=== PATIENT | female | born 1985 | race Caucasian/White ===

== ENCOUNTER 2018-03-19 14:03 | Outpatient (CLI) | payer OTHER ==
[~2018-03-19 14:03] MED LIST: Iopamidol 370 76% 100 ML VIAL ONE
--- NOTE | 2018-03-19 19:09 | CT ---
CT ABDOMEN AND PELVIS WITH IV CONTRAST: 03/19/2018 HISTORY: Sharp right lower quadrant pain, which started last night and is now constant. COMPARISON: None available. FINDINGS: The lung bases are clear. A 1.5 cm fat density lesion is seen in the left adrenal gland, likely related to a small myelolipoma. The liver, spleen, pancreas, right adrenal gland, bilateral kidneys, urinary bladder, and opacified b owel, as well as the abdominal aorta, demonstrate a normal CT appearance. The appendix is visualized and is normal in caliber. The uterus is mildly prominent, and there is fluid seen within the endometrial canal, which could be related to the stage of the patient's menstrual cycle, but this is more prominent than expected little es of the patient's menstrual cycle. There is slight heterogeneous involving a lower uterine segment , which is overall nonspecific. A discrete mass is unable to be delineated. There is a low density structure within the posterior aspect of the right ovary, measuring 2 cm, with a surrounding rim of enhancement, which may represent an involuting follicle or cyst. Left adnexal structures have a normal CT appearance. There is no free fluid, fluid collection, or lymphadenopathy seen in the abdomen or pelvis. IMPRESSION: 1. Nonspecific fluid within the endometrial canal. While this could be related to the stage of the patient's menstrual cycle, this is more prominent than typically expected for the amount of fluid wit hin the endometrial canal. Further evaluation with pelvic ultrasound is recommended. 2. Probable involuting cyst, right ovary. 3. No CT evidence of appendicitis. 4. Left adrenal myolipoma. POS: JIAN
== END 2018-03-19 14:04 | disposition home or self-care (01) ==
LOC: SCSCT 14:03
PROVIDERS: ATTEND Family Medicine
DX: R10.813 Right lower quadrant abdominal tenderness (principal); D17.79 Benign lipomatous neoplasm of other sites
CPT/HCPCS: 74177

== ENCOUNTER 2018-07-24 12:11 | Observation (INO) | payer BC ==
[2018-07-24] MEDS ORDERED: Acetaminophen 500 MG TAB PO PRN (13:00)
[2018-07-24] MEDS ORDERED: Lidocaine 1% (PF) 30 ML VIAL SC PRN (13:00)
[2018-07-24] MEDS ORDERED: Zolpidem Tartrate 5 MG TAB PO PRN (13:00)
[2018-07-24] MEDS ORDERED: Butorphanol Tartrate 1 MG/ML VIAL SLOW IVP PRN (13:00)
[2018-07-24] MEDS ORDERED: Promethazine HCl 25 MG/ML VIAL IM PRN (13:00)
[2018-07-24] MEDS ORDERED: Ondansetron PF 4 MG/2 ML Vial IVP PRN (13:00)
[2018-07-24] MEDS ORDERED: Betamet Acet/Betamet Na Ph 30 MG/5 ML VIAL ONE (13:04)
--- NOTE | 2018-07-24 13:11 | PDOC.LDHP ---
Labor and Delivery H&P Chief complaint: other (cervical funneling) HPI: 32 yo WF at 27 weeks seen at [facility] today by Dr. Hernandes. On USG, cervical funneling was seen, vtx. On her exam the cevix is closed but flush with vault. Pt. denies UCs, bleeding or SROM. Current gestational age (weeks): 27 Due date: 10/22/18 Dating criteria: first trimester ultrasound Grav: 2 Para: 0 OB History Details: Demise at 18 weeks 2* to cord accident, followed by IOL. Current complications: other (PNC with Dr. Patel. Followed at [facility]. On Lovenox 40 QD for suspected Lupus Anticoagulant.) Abnormal US findings: No Past Medical History: As above Current medications: pre-robert vitamins, other (Lovenox 40 QD, [place] q week.) Previous surgical history: none Allergies/Adverse Reactions: Allergies Allergy/AdvReac Type Severity Reaction Status Date / Time latex Allergy Mild Rash Verified 05/21/13 11:31 cucumber Allergy Swollen Uncoded 05/22/13 14:08 Lips Social history: none - Physical Exam Vital signs reviewed and normal: yes General: NAD, resting Lungs: nonlabored breathing Abdomen: NTTP Extremeties: trace edema FHT: category 1 [place] contractions every: no UCs seen - OB Labs Blood type: B RH: positive Antibody Screen: negative HIV: negative RPR: negative HEPSAg: negative 1 hour GCT: negative GBS: unknown Rubella: immune - Assessment L&D Assessment: labor (27 week IUP with cervical funneling r/o PTL, h/o demise, lupus anticoagulant on Lovenox) - Plan Plan: admit to L&D, observation in L&D, other (Steroids for FLM, watch for cervical change. D/w Dr. Hernandes. NICU notified.)
[2018-07-24] MEDS ORDERED: Betamet Acet/Betamet Na Ph 30 MG/5 ML VIAL IM SCH (13:15)
[2018-07-24 13:26] LABS: Hemoglobin 11.4 g/dL (12.0-16.0); Mean Corpuscular HGB CONC 33.5 g/dL (32.0-36.0); Mean Corpuscular Hemoglobin 29.2 pg (27.0-31.0); Mean Platelet Volume 7.2 fL (7.4-10.4); Platelet Count 283 thou/uL (130-400); RBC Distribution Width 11.6 % (11.5-14.5); Red Blood Cell (RBC) Count 3.91 mill/uL (4.20-5.40); White Blood Cell (WBC) Count 10.6 thou/uL (4.8-10.8)
[2018-07-24 13:56] VITALS: BMI 33.7
[2018-07-25 09:48] VITALS: BP 117/82; TEMP 98.2
--- NOTE | 2018-07-25 14:02 | PDOC.LDPN ---
Labor & Delivery Progress Note - Subjective Subjective: comfortable, other (occ burning sensation in lower abdomen (2times today)) - Objective Vital signs reviewed and normal: yes General: NAD Uterine fundus: non tender Dilation: 2 Effacement: 75% Station: -3 FHT: category 1 [place] contractions every: none -: 32yo at 27w2d by 8w sono admitted with cervical funneling 1. VSSAF 2. Short cervix since 20w- has been on vaginal progesterone, No sx of PTL. Now dilated on SVE. Will need continue inpatient monitoring for advanced cervical dilation. No tocolysis as pt is not in PTL. 3. Lupus anticoagulant positive- on ppx lovenox, last dose 2d ago. SCDs. 4. FHT Cat 1 for GA. 5. Transfer center contacted for transport to [facility] for NICU.
[2018-07-25] MEDS ORDERED: Magnesium Sulfate 20 gm/500 ml 20 GM/500 ML BAG ONE (15:08)
[2018-07-25] MEDS ORDERED: Calcium Gluc 4.6 MEQ/10 ML (100 MG/ML) IV PRN (15:29)
[2018-07-25] MEDS ORDERED: Magnesium Sulfate 20 gm/500 ml 4 GM/100 ML BAG IVPB ONE (15:45)
[2018-07-25] MEDS ORDERED: Magnesium Sulfate 20 gm/500 ml 20 GM/500 ML BAG IVPB PRN (16:00)
--- NOTE | 2018-07-26 10:01 | DIS ---
DATE OF ADMISSION: 07/24/2018 DATE OF DISCHARGE: 07/25/2018 ADMISSION DIAGNOSES: 1. Intrauterine at 27 weeks and 1 day. 2. Short cervix with cervical funneling. 3. Positive lupus anticoagulant. DISCHARGE DIAGNOSES: 1. Intrauterine at 27 weeks and 2 days. 2. Advanced cervical dilation at 2 cm. 3. Positive lupus anticoagulant. DISCHARGE CONDITION: Guarded. CONSULTATIONS: None. PROCEDURES: None. HISTORY AND PHYSICAL: Please see previously dictated H and P. HOSPITAL COURSE: A 32-year-old, G2, P0, was sent over for direct admission secondary to intermittent lower abdominal pain and ultrasound finding of no measurable cervical length with a funnel. The patient had a vaginal exam and was noted to be closed in the office. She was monitored overnight and started on betamethasone x2 doses. She had no contractions on the tocometer and heart tones were category 1. The fetus is well grown at 1298 g and has normal fluid, was in cephalic presentation on ultrasound on admission date. After patient received her second dose of steroids, she was asymptomatic and the vaginal exam was performed to ensure the patient was stable for discharge. However, she was found to be 2 cm dilated and 80% effaced at that time. Presenting part was palpable, did not palpate like a vertex, and decision was made to proceed with transfer to higher level of care for NICU status. The patient was successfully transferred to [facility]. Dr. Casey was the accepting doctor and she was also bolused 4 g of magnesium and started on 2 g/hour of magnesium during transport and ordered for neuroprotection. No labs or studies are pending at the time of discharge. Job ID: [id number]
== END 2018-07-25 16:55 | disposition short-term general hospital (02) ==
LOC: L&D/OP 12:11 → L&D 15:43
PROVIDERS: ADMIT Obstetrics & Gynecology; ATTEND Obstetrics & Gynecology
DX: O26.872 Cervical shortening, second trimester (principal); Z3A.27 27 weeks gestation of pregnancy; Z91.040 Latex allergy status; Z91.018 Allergy to other foods; Z91.09 Other allergy status, other than to drugs and biological substances; Z79.82 Long term (current) use of aspirin; Z79.01 Long term (current) use of anticoagulants
CPT/HCPCS: 85027; 86850; 86900; 86901; 96365; 96372; G0378; J0702; J3475

== ENCOUNTER 2018-09-18 10:05 | Inpatient (IN) | payer BC, OTHER ==
[2018-09-18 10:47] VITALS: BMI 34.8
[2018-09-18 12:05] LABS: Bilirubin Negative (Negative); Blood, Urine Negative (Negative); Clarity CLOUDY (Clear); Glucose, Urine (Dipstick) Negative (Negative); Leukocyte Trace (Negative); Nitrite Negative (Negative); Protein, Urine (Dipstick) 100 mg/dL (Neg-Trace); Specific Gravity, Urine 1.026 (1.002-1.036); Urobilinogen 0.2 mg/dL (0.2-1.0); pH, Urine 6.5 (5.0-9.0)
[2018-09-18 12:07] LABS: Bacteria/HPF Rare-Few HPF (None Seen); Hyaline Casts/LPF 4-6 HYALINE CAST LPF (0-3 Hyaline); Pathc Cast-AUWi Flag 0.81 (0-2.49); Squamous Epithelial 0-3 HPF (0-3); WBC/HPF 21-50 HPF (0-3)
[2018-09-18 12:30] LABS: Hemoglobin 11.9 g/dL (12.0-16.0); Mean Corpuscular HGB CONC 35.2 g/dL (32.0-36.0); Mean Corpuscular Hemoglobin 30.4 pg (27.0-31.0); Mean Corpuscular Volume 86.3 fL (78.0-98.0); Mean Platelet Volume 8.7 fL (7.4-10.4); Platelet Count 157 thou/uL (130-400); RBC Distribution Width 13.4 % (11.5-14.5); Red Blood Cell (RBC) Count 3.93 mill/uL (4.20-5.40); White Blood Cell (WBC) Count 8.6 thou/uL (4.8-10.8)
[2018-09-18 12:53] LABS: ALT (SGPT) 10 U/L (8-55); AST (SGOT) 15 U/L (5-34); Albumin 3.4 g/dL (3.5-5.0); Alkaline Phosphatase 132 U/L (40-150); Anion Gap 13 mmol/L (10-20); BUN (Urea Nitrogen) 13 mg/dL (7.0-18.7); Bilirubin, Total Less than 0.2 mg/dL (0.2-1.2); Calc. Creatinine Clearance 184 mL/min (70-130); Calcium 9.5 mg/dL (7.8-10.44); Carbon Dioxide 20 mmol/L (22-29); Chloride 107 mmol/L (98-107); Estimated GFR-MDRD 85; Globulin 3.4 g/dL (2.4-3.5); Glucose 83 mg/dL (70-105); Potassium 4.2 mmol/L (3.5-5.1); Protein, Total 6.8 g/dL (6.0-8.3); Sodium 136 mmol/L (136-145)
[2018-09-18] MEDS ORDERED: Ondansetron PF 4 MG/2 ML Vial IVP PRN (13:21)
[2018-09-18] MEDS ORDERED: Betamet Acet/Betamet Na Ph 30 MG/5 ML VIAL IM SCH (13:45)
[2018-09-18 14:47] LABS: HBSAg Index 0.26 S/CO (0-0.99); Hep B Surf Ag Non-Reactive S/CO (NonReactive)
[2018-09-18 14:50] LABS: Syphilis Antibody Nonreactive (Nonreactive); Syphilis Antibody Index 0.05 S/CO (<1.00 Non-Reactive)
--- NOTE | 2018-09-18 18:15 | HP ---
PRIMARY GASTROENTEROLOGIST: Carol Patel MD CHIEF COMPLAINT: Elevated blood pressure. HISTORY OF PRESENT ILLNESS: The patient is a 32-year-old, G2, P0, female with an intrauterine at 35 weeks and a day, who is presenting to Labor and Delivery after having elevated blood pressures and pelvic pain in the clinic. The patient denies contraction pain. She reports pelvic pain that seems to be more present with activity and movement such as getting out of bed or out of the car. She denies headache, chest pain, or shortness of breath. She did vomit earlier or last night, but denies any nausea currently. Denies any diarrhea or constipation. The patient does report sore hips. Denies any knee problems or muscle weakness. Denies any new rashes, vaginal bleeding, leakage of fluid, urinary urgency or frequency. The patient also denies any significant weight increases in the recent days to week. The patient reports she has been monitoring her blood pressures at home for several weeks since being discharged from the hospital after being arrested labor, but reports her blood pressure has primarily been in the 130s and 80s, sometimes in the 90s diastolic. PAST MEDICAL HISTORY: Suspected lupus anticoagulant, on Lovenox. PAST SURGICAL HISTORY: Negative. ALLERGIES: LATEX AND CUCUMBERS. SOCIAL HISTORY: Denies drug, alcohol, or tobacco use. MEDICATIONS: 1. Lovenox 40 mg subcutaneously daily. 2. vitamins. 3. Micronized progesterone. 4. Tylenol p.r.n. OB LABS: Blood type is B negative. Antibody screen is negative. VDRL initial is nonreactive. Hepatitis B surface antigen first trimester is nonreactive. HIV first trimester is nonreactive. She is rubella immune. Drug screen is negative. Third trimester antibody screen is negative. One-hour Glucola is 129. REVIEW OF SYSTEMS: Per HPI. PHYSICAL EXAMINATION: VITAL SIGNS: Blood pressure on arrival was 137/91, heart rate of 75, respiratory rate of 18, saturating 96% on room air, and temperature 98.8. Her blood pressures during her stay so far have been in the 130s to 150s over 80s to 90s primarily. She has had 161 systolic pressure and 103 diastolic pressure. GENERAL: She appears to be in no acute distress. She is alert and oriented, cooperative and pleasant to interact with. HEENT: Head is normocephalic and atraumatic. LUNGS: Clear to auscultation bilaterally. HEART: Has regular rate and rhythm. ABDOMEN: Gravid, soft, and nontender to palpation. EXTREMITIES: Nontender, nonedematous. DTRs are non-existent. GENITOURINARY: Has been deferred. heart tracing and NST for elevated blood pressures and pelvic pains. Blood pressure baseline in the 120s with moderate long-term variability, positive 15 x 15 accelerations, no decelerations. There is some isolated contraction on the tocometer. LABORATORY DATA: White count 8.6, hemoglobin 11.9, hematocrit 33.9, platelets 157,000, down from 283,000 a couple of months ago. Urine shows 100 mg/dL of protein, pH of 6.5, ketones are negative, leukocyte esterase trace, white blood cells 21 to 50, no squamous cells, and no bacteria. AST of 15, ALT of 10, alkaline phosphatase 132, glucose 83, sodium 136, and potassium 4.2. IMAGING DATA: Ultrasound, the patient had a BPP in the office today at 11/22. Also of note, the patient reports that she had RhoGAM given to her on 07/30/2018 and has her documentation card. ASSESSMENT AND PLAN: The patient is a 32-year-old, G2, P0, female with an intrauterine at 35 weeks and a day, who has evidence of preeclampsia by blood pressure and proteinuria. She has had one severe range pressure and has what appeared to be lowering platelets, but nothing to rule in for severe at this time given her elevated risk for this in early delivery. The patient will be admitted for blood pressure monitoring and steroid administration. The patient is admitted to Dr. Patel, who will be managing care at this point. Fetus is reactive NST and category I tracing. Job ID: [id number]
--- NOTE | 2018-09-19 08:43 | PDOC.EVN ---
Event Note - Event Note Event Note: S: No complaints, no RIVERA vision change RUQ pain. Good FM. No ctx VB LOF O: BP normal -mild, severe range x 1 yesterday at 1245 NAD RRR CTAB S/nt/gravid NST: baseline 110/modbtbv/+accel/no decel [place] rare contraction No e/c/c A: IUP at 35w2d by LMP with preeclampsia, for rule out severe features P: Repeat labs today, cont serial BP, if additional severe range BP will be severe and need IOL. BMZ x 2, up at 1300 Cont monitoring while in house. Poss home after steroids if BP and labs ok.
[2018-09-19] MEDS ORDERED: Prenatal Vitamin 1 TAB PO SCH (09:00)
[2018-09-19 09:30] LABS: #Lymphocytes 1.8 thou/uL (1.20-3.40); #Monocytes 0.6 thou/uL (0.11-0.59); #Neutrophils 8.8 thou/uL (1.40-6.50); %Basophils 0.1 % (0.0-1.0); %Eosinophils 0.3 % (0.0-10.0); %Lymphocytes 15.6 % (21.0-51.0); %Monocytes 5.6 % (0.0-10.0); %Neutrophils 78.5 % (42.0-75.0); Hemoglobin 12.1 g/dL (12.0-16.0); Mean Corpuscular HGB CONC 35.3 g/dL (32.0-36.0); Mean Corpuscular Hemoglobin 30.6 pg (27.0-31.0); Mean Corpuscular Volume 86.6 fL (78.0-98.0); Mean Platelet Volume 8.6 fL (7.4-10.4); Platelet Count 169 thou/uL (130-400); RBC Distribution Width 13.4 % (11.5-14.5); Red Blood Cell (RBC) Count 3.97 mill/uL (4.20-5.40); White Blood Cell (WBC) Count 11.3 thou/uL (4.8-10.8)
[2018-09-19 09:57] LABS: ALT (SGPT) 11 U/L (8-55); AST (SGOT) 14 U/L (5-34); Albumin 3.4 g/dL (3.5-5.0); Alkaline Phosphatase 133 U/L (40-150); Anion Gap 15 mmol/L (10-20); BUN (Urea Nitrogen) 11 mg/dL (7.0-18.7); Bilirubin, Total 0.2 mg/dL (0.2-1.2); Calc. Creatinine Clearance 194 mL/min (70-130); Calcium 9.6 mg/dL (7.8-10.44); Carbon Dioxide 19 mmol/L (22-29); Chloride 105 mmol/L (98-107); Estimated GFR-MDRD 90; Globulin 3.5 g/dL (2.4-3.5); Glucose 105 mg/dL (70-105); Protein, Total 6.9 g/dL (6.0-8.3); Sodium 135 mmol/L (136-145)
[2018-09-19 14:45] LABS: Creatinine, Urine 74.21 mg/dL (47-110)
== END 2018-09-19 16:05 | disposition home or self-care (01) | DRG 998 ==
LOC: L&D/OP 10:05 → L&D 14:01
PROVIDERS: ADMIT Student in an Organized Health Care Education/Training Program; ATTEND Student in an Organized Health Care Education/Training Program
DX: O14.94 Unspecified pre-eclampsia, complicating childbirth (principal); Z3A.35 35 weeks gestation of pregnancy; Z91.040 Latex allergy status
CPT/HCPCS: 36415; 80053; 81001; 82570; 84156; 85025; 85027; 86780; 86850; 86900; 86901; 87340; 99285; J0702

== ENCOUNTER 2018-09-23 19:27 | Inpatient (IN) | payer BC, OTHER ==
[2018-09-23 20:07] VITALS: BMI 34.9
[2018-09-23 20:36] LABS: #Eosinphils 0.1 thou/uL (0.0-0.7); #Lymphocytes 2.4 thou/uL (1.20-3.40); #Monocytes 1.3 thou/uL (0.11-0.59); #Neutrophils 8.8 thou/uL (1.40-6.50); %Basophils 0.1 % (0.0-1.0); %Eosinophils 0.6 % (0.0-10.0); %Monocytes 10.2 % (0.0-10.0); %Neutrophils 70.1 % (42.0-75.0); Hemoglobin 12.6 g/dL (12.0-16.0); Mean Corpuscular HGB CONC 33.2 g/dL (32.0-36.0); Mean Corpuscular Hemoglobin 29.2 pg (27.0-31.0); Mean Corpuscular Volume 87.9 fL (78.0-98.0); Mean Platelet Volume 8.4 fL (7.4-10.4); Platelet Count 199 thou/uL (130-400); RBC Distribution Width 13.7 % (11.5-14.5); White Blood Cell (WBC) Count 12.5 thou/uL (4.8-10.8)
--- NOTE | 2018-09-23 20:43 | PDOC.EVN ---
Event Note - Event Note Event Note: History And Physical Interim note Full H&P DICTATED Location: L&D Time: 2029 CC: RIVERA at home and some "blurry vision", mild nausea; HX BP elevation this ; (HX SAB at 18 weeks previously). EGA: 35 weeks [address] Jorge Hawkins have seen and evaluated the patient. BPs 150s/90s We will keep overnight for BP observation. labs ordered. Celestone given previously.
[2018-09-23 20:56] LABS: ALT (SGPT) 62 U/L (8-55); AST (SGOT) 41 U/L (5-34); Albumin 3.3 g/dL (3.5-5.0); Alkaline Phosphatase 130 U/L (40-150); Anion Gap 14 mmol/L (10-20); BUN (Urea Nitrogen) 13 mg/dL (7.0-18.7); Bilirubin, Total 0.2 mg/dL (0.2-1.2); Calc. Creatinine Clearance 201 mL/min (70-130); Calcium 9.4 mg/dL (7.8-10.44); Carbon Dioxide 19 mmol/L (22-29); Chloride 107 mmol/L (98-107); Estimated GFR-MDRD Greater than 90; Globulin 3.5 g/dL (2.4-3.5); Glucose 101 mg/dL (70-105); Protein, Total 6.8 g/dL (6.0-8.3); Sodium 136 mmol/L (136-145)
[2018-09-23] MEDS ORDERED: Betamet Acet/Betamet Na Ph 30 MG/5 ML VIAL IM SCH (21:00)
[2018-09-23 21:02] LABS: Creatinine, Urine 34.59 mg/dL (47-110)
--- NOTE | 2018-09-23 21:07 | HP ---
TIME: 2034. LOCATION: Labor and Delivery triage room B. This is a patient of Dr. Patel. CHIEF COMPLAINT: The patient is here with a chief complaint of headaches at home and recent blood pressure evaluation during this . HISTORY OF PRESENT ILLNESS: This is a 33-year-old , 2, para 0, at 35 weeks and 6 days, who presents with a complaint of headache earlier today and some mild nausea. She states that she had some on and off blurry vision, but no little lights in her vision. She was recently given steroids for some elevated blood pressures, but was sent home after that evaluation. She has good movement, no right upper quadrant pain, no vaginal bleeding, no leakage of fluid. REVIEW OF SYSTEMS: Complete review of systems was checked and is otherwise negative unless specified in the HPI. PAST MEDICAL HISTORY: Otherwise unremarkable. OB HISTORY: She had an 18-week previous demise that was a vaginal . PAST SURGICAL HISTORY: Includes laparoscopy as well as a prior LEEP. ALLERGIES: THE PATIENT HAS ALLERGIES TO LATEX, AMMONIA, BLEACH, MELON, AND SEVERAL OTHERS LISTED, WHICH WERE FOUND IN THE EMR AND HAVE BEEN REVIEWED. SOCIAL HISTORY: Noncontributory. PHYSICAL EXAMINATION: VITAL SIGNS: Blood pressure is 155/96 and 156/94. Pulse is normal in the 70s to 80s, and she is afebrile. Respirations are unlabored at about 18 to 20. GENERAL: Clinically, she is in no acute distress. ABDOMEN: Soft and nontender. PELVIC: Exam was deferred. Perineal inspection shows no vaginal bleeding or rupture of membranes. On monitoring, heart tones are in the 130s to 140s and category I. There is some uterine irritability, but no overt contractions. ASSESSMENT: This is a G2, P0, at 35 weeks and 6 days, here for blood pressure evaluation with a small headache at home, but that has now resolved. Her blood pressures are in the [id number] range, but are not in the severe criteria. PLAN: 1. I will order a CMP, CBC, and check urine protein and creatinine. 2. She has already received steroids, so we will not administer Celestone at this time. 3. We will do serial blood pressures every 30 minutes overnight and just keep her for overnight observation to be conservative. 4. If she has persistent objective evidence of severe disease, she may require induction of labor. 5. No evidence of severe disease at this time as headache has resolved and "blurry vision" is nonspecific. 6. I have notified by Dr. Patel by [employer] and she is aware. She will follow up with the patient tomorrow for final disposition. Job ID: [id number]
[2018-09-23] MEDS: Acetaminophen 500 MG TAB PO PRN (21:11)
--- NOTE | 2018-09-23 21:22 | PDOC.EVN ---
Event Note - Event Note Event Note: Lab check: AST 41; ALT 62...UP/Cr ratio is 2 I will relay to Dr babcock. Check CX
[2018-09-23] MEDS ORDERED: Calcium Gluc 4.6 MEQ/10 ML (100 MG/ML) SLOW IVP PRN (21:31)
--- NOTE | 2018-09-23 21:31 | PDOC.EVN ---
Event Note - Event Note Event Note: Time: 2129 INDUCTION NOTE I have updated the patient on her labs at bedside with Bhavna present. Jose communicated with Dr babcock.. We will start Mag Sulfate after her dinner tonight (to prevent mag nausea with meal) and start pitocin at 0400 for preeclampsia with lab abnormalities (severe criteria). Q&A done at bedside.
[2018-09-23] MEDS ORDERED: Lidocaine 1% (PF) 30 ML VIAL SC PRN (21:32)
[2018-09-23] MEDS ORDERED: Promethazine HCl 25 MG/ML VIAL IM PRN (21:32)
[2018-09-23] MEDS ORDERED: Butorphanol Tartrate 1 MG/ML VIAL SLOW IVP PRN (21:32)
[2018-09-23] MEDS ORDERED: Ondansetron PF 4 MG/2 ML Vial IVP PRN (21:32)
[2018-09-23] MEDS ORDERED: HYDROcodone/Acetaminophen 5/325 mg Tablet PO PRN ×2 (21:32)
[2018-09-23] MEDS ORDERED: Ibuprofen 800 MG TAB PO PRN (21:32)
[2018-09-23] MEDS ORDERED: Magnesium Sulfate 20 GM/WATER 500 ML BAG IVPB SCH (21:45)
[2018-09-23] MEDS ORDERED: Lactated Ringer's 1,000 ML IV SCH (22:00)
[2018-09-23] MEDS: Magnesium Sulfate 20 gm/500 ml 20 GM/500 ML BAG IVPB SCH (23:30)
[2018-09-24 00:24] LABS: Syphilis Antibody Nonreactive (Nonreactive); Syphilis Antibody Index 0.05 S/CO (<1.00 Non-Reactive)
[2018-09-24 01:00] LABS: HBSAg Index 0.24 S/CO (0-0.99); HIV (1/2) Antibody/Antigen Non-Reactive (NonReactive); HIV 1/2 INDEX 0.25 S/CO (<1.00); Hep B Surf Ag Non-Reactive S/CO (NonReactive)
[2018-09-24] MEDS: NS w/ Oxytocin 10 units 500 ML IV SCH ×2 (03:56→15:31)
[2018-09-24] MEDS: Acetaminophen 500 MG TAB PO PRN (04:09)
[2018-09-24] MEDS: Magnesium Sulfate 20 gm/500 ml 20 GM/500 ML BAG IVPB SCH ×2 (07:30→16:07)
[2018-09-24] MEDS ORDERED: hydrALAZINE 20 MG/ML VIAL ONE (07:59)
[2018-09-24] MEDS ORDERED: hydrALAZINE 20 MG/ML VIAL SLOW IVP SCH (08:15)
--- NOTE | 2018-09-24 08:29 | PDOC.LDPN ---
Labor & Delivery Progress Note - Subjective Subjective: painful contractions, other (headache) - Objective Abnormal vital signs: mild-severe range BPs General: NAD Uterine fundus: non tender Dilation: 5 Effacement: 100% Station: -2 (arom clear) FHT: category 1 [place] contractions every: 4min AROM: clear fluid Plan: labor augmentation, other (cont mag for Severe PEC, treat severe range BP with hydralazine prn, stadol for RIVERA, recheck labs and mag level this am. No sx mag toxicity, UOP 200cc/hr)
[2018-09-24 08:56] LABS: #Basophils 0.1 thou/uL (0.0-0.2); #Eosinphils 0.1 thou/uL (0.0-0.7); #Lymphocytes 2.8 thou/uL (1.20-3.40); #Monocytes 1.2 thou/uL (0.11-0.59); #Neutrophils 8.5 thou/uL (1.40-6.50); %Basophils 0.8 % (0.0-1.0); %Eosinophils 0.6 % (0.0-10.0); %Lymphocytes 21.9 % (21.0-51.0); %Monocytes 9.6 % (0.0-10.0); %Neutrophils 67.1 % (42.0-75.0); Hemoglobin 13.6 g/dL (12.0-16.0); Mean Corpuscular HGB CONC 33.7 g/dL (32.0-36.0); Mean Corpuscular Hemoglobin 29.1 pg (27.0-31.0); Mean Corpuscular Volume 86.5 fL (78.0-98.0); Mean Platelet Volume 8.3 fL (7.4-10.4); Platelet Count 217 thou/uL (130-400); RBC Distribution Width 13.7 % (11.5-14.5); Red Blood Cell (RBC) Count 4.66 mill/uL (4.20-5.40); White Blood Cell (WBC) Count 12.6 thou/uL (4.8-10.8)
[2018-09-24 09:14] LABS: ALT (SGPT) 57 U/L (8-55); AST (SGOT) 32 U/L (5-34); Albumin 3.4 g/dL (3.5-5.0); Alkaline Phosphatase 142 U/L (40-150); Anion Gap 14 mmol/L (10-20); BUN (Urea Nitrogen) 11 mg/dL (7.0-18.7); Bilirubin, Total 0.2 mg/dL (0.2-1.2); Calc. Creatinine Clearance 193 mL/min (70-130); Calcium 8.7 mg/dL (7.8-10.44); Carbon Dioxide 19 mmol/L (22-29); Chloride 105 mmol/L (98-107); Estimated GFR-MDRD 90; Globulin 3.7 g/dL (2.4-3.5); Glucose 91 mg/dL (70-105); Magnesium 5.4 mg/dL (1.6-2.6); Potassium 4.3 mmol/L (3.5-5.1); Protein, Total 7.1 g/dL (6.0-8.3); Sodium 134 mmol/L (136-145)
[2018-09-24] MEDS ORDERED: Fentanyl 4 mcg/Bup 0.1% Cadd 100 ML ONE (11:09)
--- NOTE | 2018-09-24 12:28 | PDOC.LDPN ---
Labor & Delivery Progress Note - Subjective Subjective: comfortable, other (headache) - Objective Vital signs reviewed and normal: yes Abnormal vital signs: bp have normalized since epidural General: NAD Uterine fundus: non tender Dilation: 8 Effacement: 100% Station: 0 FHT: category 2, absent or minimal variables [place] contractions every: 3min Plan: resuscitative measures (cont mag, tylenol prn RIVERA, LFTs trended down, nl Plt, creat. )
[2018-09-24] MEDS ORDERED: diphenhydrAMINE 50 MG/ML VIAL IVP PRN (15:36)
[2018-09-24] MEDS ORDERED: Ondansetron PF 4 MG/2 ML Vial IVP PRN (15:36)
[2018-09-24] MEDS ORDERED: Promethazine HCl 25 MG/ML VIAL IM PRN (15:36)
[2018-09-24] MEDS ORDERED: Lactated Ringer's 500 ML IV PRN (15:36)
[2018-09-24] MEDS ORDERED: ePHEDrine/0.9% NaCl/PF SYRINGE 50 mg/10 ml SLOW IVP PRN (15:36)
[2018-09-24] MEDS ORDERED: Naloxone HCl 0.4 mg/ml Vial IVP PRN ×2 (15:36)
[2018-09-24] MEDS ORDERED: Acetaminophen 325 MG TAB PO PRN (15:36)
[2018-09-24] MEDS ORDERED: Communication Order-Pharmacy FS SCH (15:45)
[2018-09-24] MEDS ORDERED: Fentanyl 4 mcg/Bupivacaine 0.1% Cassette 100 ML EPIDURAL SCH (15:45)
[2018-09-24] MEDS ORDERED: Carboprost 250 MCG/ML AMP ONE (18:38)
[2018-09-24] MEDS ORDERED: Misoprostol 200 MCG TAB ONE (18:38)
[2018-09-24] MEDS: NS / Oxytocin 40 units/1000ml 1,000 ML IV PRN ×2 (19:09→19:57)
[2018-09-24 19:14] LABS: Actual Bicarbonate (HCO3a) 20.3 mEq/L (22-28); Base Excess (BEa) -9.4 mEq/L (-2.0 to +3.0)
--- NOTE | 2018-09-24 19:21 | PDOC.OPDEL ---
OB Operative/Delivery Note Delivery Dr/Surgeon: Jorge Assist: n/a Pre-Delivery Diagnosis: medically indicated induction (Severe PEC) Procedure/Post Delivery Dx: operative vaginal delivery (VE) Weeks gestation: 36 Anesthesia: epidural - Findings A Sex: female Weight: 6 lb 10 oz - 1 min: 7 - 5 min: 8 - Additional Findings/Plan Placenta delivered: spontaneous Repaired Obstetrical Laceration: 1st degree (repaired with 2-0 vicryl) Estimated blood loss: 400 Compilations/Other Findings: NC x 1 delivered through, large cystic mass on anterior neck immediately cord clamped and handed to paco team in attendance due to VE for NRFHT with recurrent late decels during last stages of pushing with slow descent. Mom had been pushing x 2.5 hr, baby was ROP and would not rotate. Pt pushed to +3 station and decision was made for VE extraction for recurrent late decels. Successful extraction. See OVD note in chart. Post delivery plan: recovery in LICU
[2018-09-24] MEDS ORDERED: hydrALAZINE 20 MG/ML VIAL SLOW IVP PRN (21:46)
[2018-09-24] MEDS ORDERED: Bupivacaine/Epinephrine 0.25% 30 ML VIAL ONE (22:05)
[2018-09-24] MEDS ORDERED: Lidocaine 2% MPF 10 ML AMP (For Epidural Use) ONE (22:05)
[2018-09-24] MEDS: Morphine 4 MG/ML VIAL SLOW IVP PRN (23:07)
[2018-09-25] MEDS: Magnesium Sulfate 20 gm/500 ml 20 GM/500 ML BAG IVPB SCH ×2 (00:48→11:50)
[2018-09-25] MEDS: Morphine 4 MG/ML VIAL SLOW IVP PRN (04:23)
[2018-09-25] MEDS ORDERED: Benzocaine-Menthol 82.5 ML CAN TOP PRN (04:48)
[2018-09-25] MEDS ORDERED: diphenhydrAMINE 25 MG CAP PO PRN (04:48)
[2018-09-25] MEDS ORDERED: Zolpidem Tartrate 5 MG TAB PO PRN (04:48)
[2018-09-25] MEDS ORDERED: HYDROcodone/Acetaminophen 5/325 mg Tablet PO PRN ×2 (04:48)
[2018-09-25] MEDS ORDERED: Milk Of Magnesia 30 ML UDCUP PO PRN (04:48)
[2018-09-25] MEDS ORDERED: Preparation H Ointment 28 GM TUBE PR PRN (04:48)
[2018-09-25] MEDS ORDERED: Bisacodyl 10 MG SUPP PR PRN (04:48)
[2018-09-25] MEDS ORDERED: NS / Oxytocin 40 units/1000ml 1,000 ML IV SCH (04:48)
[2018-09-25] MEDS ORDERED: Ondansetron PF 4 MG/2 ML Vial IVP PRN (04:48)
[2018-09-25] MEDS ORDERED: Lanolin Ointment 7 GM TUBE TOP PRN (04:48)
[2018-09-25] MEDS: Ibuprofen 800 MG TAB PO SCH ×2 (06:37→21:48)
[2018-09-25 06:59] LABS: Hemoglobin 10.8 g/dL (12.0-16.0); Mean Corpuscular HGB CONC 34.6 g/dL (32.0-36.0); Mean Corpuscular Hemoglobin 30.1 pg (27.0-31.0); Mean Corpuscular Volume 87.1 fL (78.0-98.0); Platelet Count 199 thou/uL (130-400); RBC Distribution Width 13.4 % (11.5-14.5); Red Blood Cell (RBC) Count 3.57 mill/uL (4.20-5.40); White Blood Cell (WBC) Count 21.2 thou/uL (4.8-10.8)
[2018-09-25] MEDS ORDERED: Adacel (T-DAP) 0.5 ML SYRINGE IM ONE (09:00)
[2018-09-25 09:46] LABS: Band 2 % (5-11); Lymphocytes 17 % (21-51); MDiff Complete? YES; Neutrophil 81 % (42-75); Platelet Morphology Comment Appears Adequate; Polychromasia SLIGHT = 2-3 cells (100X) (0-2/hpf)
--- NOTE | 2018-09-25 09:51 | PDOC.PP ---
Post Progress Note Post Day #: 1 Subjective: c/o RIVERA this am, very sleepy, not hungry but has eaten a little. No N/V, perineal pain is manageable. No heavy vag bleeding. Breastpumping. PO intake tolerated: yes Flatus: no Ambulation: no Weight Weight 251 lb - Physical Examination General: NAD Cardiovascular: RRR Respiratory: clear to auscultation bilaterally, non-labored breathing Abdominal: no distention, appropriately TTP Fundus firm & at: umb-2 Extremities: negative homans (B) Perineum: bilateral labia edematous, left labial hematoma at posterior most aspect Deviation from normal: approx 5x4cm, nontender, no active bleeding, not expanding Deviation from normal: DTR minimal Result Diagrams: 09/25/18 06:42 09/24/18 08:37 Additional Labs: Post Labs Blood Type B NEGATIVE 09/23/18 23:28 Hep Bs Antigen Non-Reactive S/CO (NonReactive) 09/23/18 23:28 - Assessment/Plan PPD1 s/p VAVD at 36w 2/2 severe PEC VSSAF PEC- hold mag, check stat mag level due to pt fatigue and decr DTR. Labs ok, BP wnl Lochia appropriate, ice pack to labia, cont morales catheter due to swelling. Monitor hematoma, nonexpanding overnight Hgb 10.8, PPH ebl 600, acute blood loss anemia, mild, no sx, cont PNV. Rh neg, for rhogam screening Cont LICU care, FU mag level
[2018-09-25] MEDS: Prenatal Vitamin 1 TAB PO SCH (10:26)
[2018-09-25] MEDS: Ferrous Sulfate 325 MG TAB PO SCH (10:26)
[2018-09-25] MEDS: Docusate Calcium (SURFAK) 240 MG CAP PO SCH ×2 (10:27→21:48)
[2018-09-25] MEDS ORDERED: Sodium Chloride 0.9% 10 ML ONE ×2 (22:59→23:37)
[2018-09-25] MEDS ORDERED: CEFAZOLIN 2 GM in Premix Bag 1 BAG IVPB SCH (23:00)
[2018-09-26] MEDS: Ferrous Sulfate 325 MG TAB PO SCH ×3 (03:42→17:01)
[2018-09-26] MEDS: Ibuprofen 800 MG TAB PO SCH ×3 (03:42→14:04)
[2018-09-26] MEDS: Prenatal Vitamin 1 TAB PO SCH (08:11)
[2018-09-26] MEDS: Docusate Calcium (SURFAK) 240 MG CAP PO SCH (08:11)
--- NOTE | 2018-09-26 10:35 | PDOC.PP ---
Post Progress Note Post Day #: 2 PO intake tolerated: yes Flatus: yes Ambulation: yes Vital Signs (12 hours) Temp Pulse Resp BP BP Pulse Ox 09/26/18 08:10 95 09/26/18 07:15 98.8 F 104 H 16 108/60 95 09/26/18 03:50 98.9 F 91 16 125/57 L 09/25/18 23:40 98.7 F 88 20 114/62 95 09/25/18 22:40 99.1 F 92 20 97/55 L 96 Weight Weight 251 lb - Physical Examination General: NAD Respiratory: non-labored breathing Abdominal: no distention, appropriately TTP Skin: no rash Neurological: no gross focal deficits Psychiatric: normal affect Result Diagrams: 09/25/18 06:42 09/24/18 08:37 Additional Labs: Post Labs Blood Type B NEGATIVE 09/23/18 23:28 Hep Bs Antigen Non-Reactive S/CO (NonReactive) 09/23/18 23:28 - Assessment/Plan PPD2 s/p PTSVD at 36w 2/2 severe PEC VSSAF PEC- BP nl, no sx PIH, s/p Mag Labial hematoma- nonexpanding, stable, no pain. cont ice packs. MARINA morales Doing well, possible home later today. Rh neg, needs rhogam, RImm
[2018-09-26 11:56] VITALS: BP 113/63; TEMP 98.6
== END 2018-09-26 17:30 | disposition home or self-care (01) | DRG 806 ==
LOC: L&D/OP 19:27 → L&D 21:52 → 3SW 09-25 21:39
PROVIDERS: ADMIT Student in an Organized Health Care Education/Training Program; ATTEND Student in an Organized Health Care Education/Training Program
PROC: 10E0XZZ Delivery of Products of Conception, External Approach (ICD-10-PCS; principal; 2018-09-24)
PROC: 0HQ9XZZ Repair Perineum Skin, External Approach (ICD-10-PCS; 2018-09-24)
PROC: 3E033VJ Introduction of Other Hormone into Peripheral Vein, Percutaneous Approach (ICD-10-PCS; 2018-09-24)
DX: O14.14 Severe pre-eclampsia complicating childbirth (principal); D62 Acute posthemorrhagic anemia; Z37.0 Single live birth; Z91.040 Latex allergy status; Z88.9 Allergy status to unspecified drugs, medicaments and biological substances; Z91.018 Allergy to other foods; O70.0 First degree perineal laceration during delivery; O99.02 Anemia complicating childbirth; Z3A.36 36 weeks gestation of pregnancy
CPT/HCPCS: 36415; 51702; 80053; 82570; 82805; 83735; 84156; 85025; 86780; 86850; 86900; 86901; 87340; 87389; 88307; 99285; J0360; J0595; J0690; J2001; J2270; J2405; J2590; J3475; J3490

== ENCOUNTER 2021-06-11 11:07 | Outpatient (CLI) | payer OTHER | END 2021-06-11 11:08 | disposition home or self-care (01) | LOC: MRI 11:07 | PROVIDERS: ATTEND Physician Assistant | DX: M54.50 Low back pain, unspecified (principal); T85.690A Other mechanical complication of cranial or spinal infusion catheter, initial encounter; M47.816 Spondylosis without myelopathy or radiculopathy, lumbar region | CPT/HCPCS: 72148 ==

== ENCOUNTER 2021-06-17 13:20 | Outpatient (CLI) | payer OTHER ==
[2021-06-17 15:40] LABS: BHCG - Serum Negative (NEGATIVE); Pregs Control Background? CLEAR/WHITE (CLR/WHITE); Pregs Control Bar Appear? YES (CONTROL BAR)
[2021-06-18 02:33] LABS: SARS-CoV-2 PCR by NAA Not Detected (NotDetected)
== END 2021-06-17 13:21 | disposition home or self-care (01) ==
LOC: LABBT 13:20
PROVIDERS: ATTEND Student in an Organized Health Care Education/Training Program
DX: Z01.812 Encounter for preprocedural laboratory examination (principal); J35.01 Chronic tonsillitis; J34.2 Deviated nasal septum; J35.1 Hypertrophy of tonsils; J34.3 Hypertrophy of nasal turbinates; J32.0 Chronic maxillary sinusitis; J32.2 Chronic ethmoidal sinusitis; G47.8 Other sleep disorders; J03.91 Acute recurrent tonsillitis, unspecified; J01.91 Acute recurrent sinusitis, unspecified; Z20.822 Contact with and (suspected) exposure to COVID-19
CPT/HCPCS: 84703; 85014; U0003; U0005

== ENCOUNTER 2021-10-17 17:05 | Emergency (ER) | payer OTHER ==
[2021-10-17 18:09] LABS: Hemoglobin 13.2 g/dL (12.0-16.0); Mean Corpuscular HGB CONC 33.1 g/dL (32.0-36.0); Mean Corpuscular Hemoglobin 29.9 pg (27.0-31.0); Mean Corpuscular Volume 90.4 fL (78.0-98.0); Mean Platelet Volume 6.7 fL (7.4-10.4); Platelet Count 232 thou/uL (130-400); RBC Distribution Width 11.7 % (11.5-14.5); Red Blood Cell (RBC) Count 4.41 mill/uL (4.20-5.40); White Blood Cell (WBC) Count 8.4 thou/uL (4.8-10.8)
[2021-10-17 18:13] LABS: BHCG - Serum Negative (NEGATIVE); Pregs Control Background? CLEAR/WHITE (CLR/WHITE); Pregs Control Bar Appear? YES (CONTROL BAR)
[2021-10-17 18:24] LABS: Lymphocytes 5 % (21-51); MDiff Complete? YES; Monocytes 12 % (0-10); Neutrophil 83 % (42-75); Platelet Morphology Comment Appears Adequate; RBC Morphology Normal
[2021-10-17 18:26] LABS: ALT (SGPT) 101 U/L (8-55); AST (SGOT) 101 U/L (5-34); Albumin 4.1 g/dL (3.5-5.0); Alkaline Phosphatase 61 U/L (40-110); Anion Gap 16 mmol/L (10-20); BUN (Urea Nitrogen) 11 mg/dL (7.0-18.7); Bilirubin, Total 0.4 mg/dL (0.2-1.2); Calc. Creatinine Clearance 0 mL/min (70-130); Calcium 9.2 mg/dL (7.8-10.44); Carbon Dioxide 22 mmol/L (22-29); Chloride 104 mmol/L (98-107); Estimated GFR 102; Globulin 3.4 g/dL (2.4-3.5); Glucose 117 mg/dL (70-105); Potassium 3.7 mmol/L (3.5-5.1); Protein, Total 7.5 g/dL (6.0-8.3); Sodium 138 mmol/L (136-145)
[2021-10-17] MEDS ORDERED: Aggrastat 12.5 MG/250 ML 0 ML ONE (20:42)
[2021-10-17] MEDS ORDERED: Acetaminophen 500 MG TAB ONE (20:42)
== END 2021-10-17 23:59 | disposition home or self-care (01) ==
LOC: ERS 17:05
DX: U07.1 COVID-19 (principal)
CPT/HCPCS: 36415; 80053; 83605; 84703; 85025; 87040; 87804; 93005; 96360; 96361; J3246; U0003; U0005

== ENCOUNTER 2023-03-27 13:55 | Outpatient (CLI) | payer OTHER | END 2023-03-27 13:56 | disposition home or self-care (01) | LOC: BICRAD 13:55 | PROVIDERS: ATTEND Nurse Practitioner Family | DX: M67.431 Ganglion, right wrist (principal) ==